=== PATIENT | female | born 1985 | race Caucasian/White ===

== ENCOUNTER 2018-10-26 08:44 | Emergency (ER) | payer SELFPAY ==
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
[2018-10-26 11:10] VITALS: BP 114/77
== END 2018-10-26 11:19 | disposition home or self-care (01) ==
LOC: ER 08:44
DX: S69.91XA Unspecified injury of right wrist, hand and finger(s), initial encounter (principal); Y04.2XXA Assault by strike against or bumped into by another person, initial encounter; Y99.0 Civilian activity done for income or pay
CPT/HCPCS: 99283

== ENCOUNTER 2020-09-16 03:51 | Emergency (ER) | payer MEDICAID ==
[2020-09-16] MEDS ORDERED: CEPHALEXIN 500 MG CAPSULE PO ONE (05:47)
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
[2020-09-16 06:13] VITALS: BP 119/81
== END 2020-09-16 06:12 | disposition home or self-care (01) ==
LOC: ER 03:51
DX: L03.113 Cellulitis of right upper limb (principal)
CPT/HCPCS: 99283